=== PATIENT | female | born 1930 ===

== ENCOUNTER 2018-01-22 11:17 | Inpatient (IN) | payer MEDICARE, BC ==
[2018-01-22] MEDS ORDERED: cefTRIAXone 2 GM in Sodium Chloride 0.9% 100 ML IV ONE (11:28)
[2018-01-22] MEDS: Sodium Chloride 0.9% 10 ML Syringe FLUSH PRN ×2 (11:31→12:17)
[2018-01-22] MEDS ORDERED: Albuterol/Ipratropium 3.0-0.5 MG/3 ML Neb Soln NEB ONE (11:37)
--- NOTE | 2018-01-22 11:47 | EDM.PDOC ---
ED HPI GENERAL MEDICAL PROBLEM - General Chief Complaint: Respiratory Problem Stated Complaint: [facility] Time Seen by Provider: 01/22/18 11:24 Source of Information: Reports: Patient History Limitations: Reports: No Limitations - History of Present Illness INITIAL COMMENTS - FREE TEXT/NARRATIVE: 87-year-old female arrives via [facility] for evaluation and treatment of pneumonia and hypoxia. Patient was at the [facility] where she had a chest x-ray done, diagnosed with pneumonia there. Due to her hypoxia was sent via ambulance. Patient reports she's been experiencing symptoms for the last 2 weeks, steadily worsening. She is reporting headache, sinus congestion, productive cough and shortness of breath. Does not normally use oxygen. She denies any earaches, sore throat, chest pain, abdominal pain, nausea, vomiting, lightheadedness or dizziness. patient is on Coumadin for atrial fibrillation. 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, Oxygen - Related Data Allergies Allergy/AdvReac Type Severity Reaction Status Date / Time No Known Allergies Allergy Verified 01/22/18 11:25 Home Meds: Home Meds Albuterol [Proair HFA] 2 puff INH ASDIRECTED 10/23/13 [History] Diltiazem HCl [Diltiazem 24Hr ER] 240 mg PO DAILY 10/23/13 [History] Furosemide [Lasix] 40 mg PO DAILY 10/23/13 [History] Latanoprost [Xalatan 0.005% Ophth Soln] 1 drop EYEBOTH BEDTIME 10/23/13 [History ] Lisinopril [Prinivil] 5 mg PO DAILY 10/23/13 [History] Potassium Chloride 20 meq PO DAILY 10/23/13 [History] Probiotic Otc 1 tab PO BID 10/23/13 [History] guaiFENesin [Mucinex] 600 mg PO Q12H 10/23/13 [History] Doxycycline [Doxycycline Hyclate] 100 mg PO BID 01/22/18 [History] Ferrous Fumarate/Vitamin C [Vitron-C] 1 tab PO DAILY 01/22/18 [History] Metoprolol Succinate 25 mg PO DAILY 01/22/18 [History] Warfarin [Coumadin] 2 mg PO ASDIRECTED 01/22/18 [History] Past Medical History - Past Health History Medical/Surgical History: Denies Medical/Surgical History Social & Family History - Tobacco Use Smoking Status *Q: Former Smoker Used Tobacco, but Quit: Yes Month/Year Tobacco Last Used: 1979 - Caffeine Use Caffeine Use: Reports: Coffee - Recreational Drug Use Recreational Drug Use: No ED ROS GENERAL - Review of Systems Review Of Systems: See Below HEENT: Reports: Sinus Problem. Denies: Ear Pain, Throat Pain Respiratory: Reports: Shortness of Breath, Cough, Sputum Cardiovascular: Denies: Chest Pain GI/Abdominal: Denies: Abdominal Pain, Nausea, Vomiting Neurological: Reports: Headache ED EXAM, GENERAL - Physical Exam Exam: See Below Exam Limited By: No Limitations General Appearance: Alert, WD/WN, No Apparent Distress Eye Exam: Bilateral Eye: Normal Inspection Ears: Normal External Exam, Normal Canal, Hearing Grossly Normal, Normal TMs Nose: Normal Inspection Throat/Mouth: Normal Inspection, Normal Lips, Normal Voice, No Airway Compromise Neck: Normal Inspection Respiratory/Chest: Rhonchi (diffuse bilaral), Wheezing (diffuse bilteral), Other (tachypnea) Cardiovascular: No Murmur, Irregularly Irregular GI/Abdominal: Soft, Non-Tender Extremities: Normal Inspection, Other (trace nonpitting edema) Neurological: Alert, Oriented, Normal Cognition Psychiatric: Normal Affect, Normal Mood EKG INTERPRETATION EKG Date: 01/22/18 Time: 12:00 Rhythm: A-Fib Rate (Beats/Min): 86 [place]: Normal P-Wave: Absent QRS: Normal ST-T: Normal QT: Normal EKG Interpretation Comments: a.fib with a rate of 74 to 103. No acute ischemic changes. Reviewed by myself and Dr. Angelo. Course - Vital Signs Last Recorded V/S: Last Vital Signs Temp 97.9 F 01/22/18 15:27 Pulse 79 01/22/18 15:27 Resp 26 H 01/22/18 12:27 BP 134/86 01/22/18 15:27 Pulse Ox 90 L 01/22/18 15:27 - Orders/Labs/Meds Orders: Active Orders 24 hr Category Date Time Status Cardiac Monitoring [RC] . DIRECTED Care 01/22/18 11:25 Active EKG 12 Lead [EKG Documentation Completion] [RC] STAT Care 01/22/18 11:51 Active Oxygen Therapy [RC] ASDIRECTED Care 01/22/18 11:25 Active Peripheral IV Care [RC] . DIRECTED Care 01/22/18 11:25 Active RT Aerosol Therapy [RC] ASDIRECTED Care 01/22/18 11:37 Active RT Aerosol Therapy [RC] ASDIRECTED Care 01/22/18 13:12 Active CULTURE BLOOD [BC] Stat Lab 01/22/18 11:45 Received CULTURE BLOOD [BC] Stat Lab 01/22/18 11:50 Received CULTURE SPUTUM + SMEAR [RM] Stat Lab 01/22/18 14:20 Ordered UA W/MICROSCOPIC [URIN] Stat Lab 01/22/18 14:20 Ordered Sodium Chloride 0.9% [Saline Flush] Med 01/22/18 11:25 Active 10 ml FLUSH ASDIRECTED PRN Blood Culture x2 Reflex Set [OM.PC] Stat Oth 01/22/18 11:25 Ordered Peripheral IV Insertion Adult [OM.PC] Routine Oth 01/22/18 11:25 Ordered Medication Orders Sodium Chloride (Saline Flush) 10 ml FLUSH ASDIRECTED PRN PRN Reason: Keep Vein Open Last Admin: 01/22/18 12:17 Dose: 10 ml Admin: 01/22/18 11:31 Dose: 10 ml Labs: Laboratory Tests 01/22/18 01/22/18 01/22/18 Range/Units 11:15 11:45 11:45 WBC 8.37 (3.98-10.04) K/mm3 RBC 4.57 (3.98-5.22) M/mm3 Hgb 13.8 (11.2-15.7) gm/L Hct 41.6 (34.1-44.9) % MCV 91.0 (79.4-94.8) fl MCH 30.2 (25.6-32.2) pg MCHC 33.2 (32.2-35.5) g/dl RDW Std Deviation 51.7 H (36.4-46.3) fL Plt Count 224 (182-369) K/mm3 MPV 10.9 (9.4-12.3) fl Neutrophils % (Manual) 68 H (40-60) % Band Neutrophils % 0 (0-10) % Lymphocytes % (Manual) 21 (20-40) % Atypical Lymphs % 0 % Monocytes % (Manual) 10 (2-10) % Eosinophils % (Manual) 1 (0.7-5.8) % Basophils % (Manual) 0 L (0.1-1.2) Platelet Estimate Adequate RBC Morph Comment Normal PT 26.5 H (9.5-12.1) SECONDS INR 2.47 Sodium 134 L (136-145) mEq/L Potassium 4.4 (3.5-5.1) mEq/L Chloride 97 L (98-107) mEq/L Carbon Dioxide 30 (21-32) mEq/L Anion Gap 11.4 (5-15) BUN 41 H (7-18) mg/dL Creatinine 1.5 H (0.55-1.02) mg/dL Est Cr Clr Drug Dosing 23.80 mL/min Estimated GFR (MDRD) 33 (>60) mL/min BUN/Creatinine Ratio 27.3 H (14-18) Glucose 92 (83-115) mg/dL Lactic Acid (0.4-2.0) mmol/L Calcium 9.4 (8.5-10.1) mg/dL Magnesium (1.8-2.4) mg/dl Total Bilirubin 0.5 (0.2-1.0) mg/dL AST 35 (15-37) U/L ALT 34 (14-59) U/L Alkaline Phosphatase 129 H (46-116) U/L Troponin I (0.00-0.056) ng/mL C-Reactive Protein 4.5 H* (<1.0) mg/dL NT-Pro-B Natriuret Pep (0-450) pg/mL Total Protein 8.1 (6.4-8.2) g/dl Albumin 3.4 (3.4-5.0) g/dl Globulin 4.7 gm/dL Albumin/Globulin Ratio 0.7 L (1-2) Mycoplasma pneumon IgM Negative (NEGATIVE) 01/22/18 01/22/18 01/22/18 Range/Units 11:45 11:45 12:20 WBC (3.98-10.04) K/mm3 RBC (3.98-5.22) M/mm3 Hgb (11.2-15.7) gm/L Hct (34.1-44.9) % MCV (79.4-94.8) fl MCH (25.6-32.2) pg MCHC (32.2-35.5) g/dl RDW Std Deviation (36.4-46.3) fL Plt Count (182-369) K/mm3 MPV (9.4-12.3) fl Neutrophils % (Manual) (40-60) % Band Neutrophils % (0-10) % Lymphocytes % (Manual) (20-40) % Atypical Lymphs % % Monocytes % (Manual) (2-10) % Eosinophils % (Manual) (0.7-5.8) % Basophils % (Manual) (0.1-1.2) Platelet Estimate RBC Morph Comment PT (9.5-12.1) SECONDS INR Sodium (136-145) mEq/L Potassium (3.5-5.1) mEq/L Chloride (98-107) mEq/L Carbon Dioxide (21-32) mEq/L Anion Gap (5-15) BUN (7-18) mg/dL Creatinine (0.55-1.02) mg/dL Est Cr Clr Drug Dosing mL/min Estimated GFR (MDRD) (>60) mL/min BUN/Creatinine Ratio (14-18) Glucose (83-115) mg/dL Lactic Acid 0.8 (0.4-2.0) mmol/L Calcium (8.5-10.1) mg/dL Magnesium 1.9 (1.8-2.4) mg/dl Total Bilirubin (0.2-1.0) mg/dL AST (15-37) U/L ALT (14-59) U/L Alkaline Phosphatase (46-116) U/L Troponin I < 0.017 (0.00-0.056) ng/mL C-Reactive Protein (<1.0) mg/dL NT-Pro-B Natriuret Pep 4181 H (0-450) pg/mL Total Protein (6.4-8.2) g/dl Albumin (3.4-5.0) g/dl Globulin gm/dL Albumin/Globulin Ratio (1-2) Mycoplasma pneumon IgM (NEGATIVE) Meds: Medications Generic Name Dose Route Start Last Admin Trade Name Freq PRN Reason Stop Dose Admin Sodium Chloride 10 ml 01/22/18 11:25 01/22/18 12:17 Saline Flush FLUSH 10 ml ASDIRECTED PRN Administration Keep Vein Open Discontinued Medications Generic Name Dose Route Start Last Admin Trade Name Freq PRN Reason Stop Dose Admin Albuterol 2.5 mg 01/22/18 13:12 01/22/18 13:30 Proventil Neb Soln NEB 01/22/18 13:13 2.5 mg ONETIME ONE Administration Albuterol/Ipratropium 3 ml 01/22/18 11:37 01/22/18 11:48 Duoneb 3.0-0.5 Mg/3 Ml NEB 01/22/18 11:38 3 ml ONETIME ONE Administration Furosemide 40 mg 01/22/18 12:58 01/22/18 13:17 Lasix IVPUSH 01/22/18 12:59 40 mg NOW ONE Administration Ceftriaxone Sodium 2 gm/ 100 mls @ 100 mls/hr 01/22/18 11:28 01/22/18 12:17 Sodium Chloride IV 01/22/18 12:27 100 mls/hr ONETIME ONE Administration Methylprednisolone Sodium Succinate 40 mg 01/22/18 13:17 01/22/18 13:41 Solu-Medrol IVPUSH 01/22/18 13:18 40 mg ONETIME ONE Administration - Radiology Interpretation Free Text/Narrative:: Two-view chest x-ray (taken at [facility]) impression per vrad: COPD. - Re-Assessments/Exams Free Text/Narrative Re-Assessment/Exam: 01/22/18 13:47 Reviewed the labs, EKG and imaging with the patient. She is still hypoxic. Her oxygen sats drop into the upper 70s with exertion. I Feel she likely has a combination of COPD and heart failure causing her hypoxia today. I'm recommending admission. She is agreeable to this. 01/22/18 13:[address] Sanchez, hospitalist application engineer. He agrees to the admission. She will be admitted med/surg. Departure - Departure Time of Disposition: 14:10 Disposition: Admitted As Inpatient 64 Condition: Fair Clinical Impression: COLD, Chronic obstructive lung disease, Hypoxemia, Heart failure - Discharge Information *PRESCRIPTION DRUG MONITORING PROGRAM REVIEWED*: No *COPY OF PRESCRIPTION DRUG MONITORING REPORT IN PATIENT WHIT: No - My Orders Last 24 Hours: My Active Orders 01/22/18 11:25 Cardiac Monitoring [RC] . DIRECTED Oxygen Therapy [RC] ASDIRECTED Peripheral IV Care [RC] . DIRECTED Sodium Chloride 0.9% [Saline Flush] 10 ml FLUSH ASDIRECTED PRN Blood Culture x2 Reflex Set [OM.PC] Stat Peripheral IV Insertion Adult [OM.PC] Routine 01/22/18 11:37 RT Aerosol Therapy [RC] ASDIRECTED 01/22/18 11:45 CULTURE BLOOD [BC] Stat 01/22/18 11:50 CULTURE BLOOD [BC] Stat 01/22/18 11:51 EKG 12 Lead [EKG Documentation Completion] [RC] STAT 01/22/18 13:12 RT Aerosol Therapy [RC] ASDIRECTED 01/22/18 14:20 CULTURE SPUTUM + SMEAR [RM] Stat UA W/MICROSCOPIC [URIN] Stat - Assessment/Plan Last 24 Hours: My Active Orders 01/22/18 11:25 Cardiac Monitoring [RC] . DIRECTED Oxygen Therapy [RC] ASDIRECTED Peripheral IV Care [RC] . DIRECTED Sodium Chloride 0.9% [Saline Flush] 10 ml FLUSH ASDIRECTED PRN Blood Culture x2 Reflex Set [OM.PC] Stat Peripheral IV Insertion Adult [OM.PC] Routine 01/22/18 11:37 RT Aerosol Therapy [RC] ASDIRECTED 01/22/18 11:45 CULTURE BLOOD [BC] Stat 01/22/18 11:50 CULTURE BLOOD [BC] Stat 01/22/18 11:51 EKG 12 Lead [EKG Documentation Completion] [RC] STAT 01/22/18 13:12 RT Aerosol Therapy [RC] ASDIRECTED 01/22/18 14:20 CULTURE SPUTUM + SMEAR [RM] Stat UA W/MICROSCOPIC [URIN] Stat
[2018-01-22] MEDS ORDERED: Furosemide 40 MG/4 ML VIAL IVPUSH ONE (12:58)
[2018-01-22] MEDS ORDERED: Albuterol 0.083% 2.5 MG/3 ML Neb Soln NEB ONE (13:12)
[2018-01-22] MEDS ORDERED: methylPREDNISolone Sodium Succinate 40 MG/1 ML SDV IVPUSH ONE (13:17)
[2018-01-22] MEDS ORDERED: Acetaminophen/oxyCODONE 325-5 MG Tab PO PRN (18:36)
[2018-01-22] MEDS ORDERED: Acetaminophen 325 MG Tab PO PRN (18:36)
[2018-01-22] MEDS ORDERED: Ondansetron 4 MG/2 ML SDV IV PRN (18:36)
[2018-01-22] MEDS ORDERED: Ondansetron 4 MG Tab.DIS PO PRN (18:36)
[2018-01-22] MEDS ORDERED: Docusate Sodium 100 MG Cap PO PRN (18:36)
[2018-01-22] MEDS ORDERED: Bisacodyl 5 MG Tab PO PRN (18:36)
[2018-01-22] MEDS ORDERED: Temazepam 7.5 MG Cap PO PRN (18:36)
[2018-01-22] MEDS ORDERED: Magnesium Hydroxide 400 MG/5 ML Susp 30 ML Cup PO PRN (18:36)
[2018-01-22] MEDS ORDERED: Albuterol 0.083% 2.5 MG/3 ML Neb Soln NEB PRN (18:36)
[2018-01-22] MEDS ORDERED: HYDROmorphone 0.5 MG/0.5 ML Syringe IVPUSH PRN (18:36)
[2018-01-22] MEDS ORDERED: Polyethylene Glycol 3350 Powder 17 GM Packet PO PRN (18:36)
[2018-01-22] MEDS ORDERED: Warfarin 2 MG Tab PO SCH (19:00)
[2018-01-22] MEDS ORDERED: Warfarin 2 MG Tab PO ONE (19:45)
[2018-01-22] MEDS: guaiFENesin 600 MG Tab.ER PO SCH (20:02)
[2018-01-22] MEDS: Latanoprost 0.005% Ophth Soln 2.5 ML Bottle EYEBOTH SCH (20:04)
[2018-01-22] MEDS: methylPREDNISolone Sodium Succinate 40 MG/1 ML SDV IVPUSH SCH (20:07)
--- NOTE | 2018-01-22 22:25 | PCM.HP ---
H&P History of Present Illness - General Date of Service: 01/22/18 Admit Problem/Dx: Admission Diagnosis/Problem Admission Diagnosis/Problem COPD, Moderate chronic obstructive pulmonary disease Source of Information: Patient, Family History Limitations: Reports: No Limitations - History of Present Illness Initial Comments - Free Text/Narative: This is an 87 yo female with past medical h/o Afib on coumadin, CHF, HTN, Glaucoma who comes in for CHF and COPD exacerbation with hypoxia. No current pain. She complains of wheezing, SOB on exertion, productive cough, sinus congestion, headache. She denies any F/C, decreased appetite, nausea, vomiting, diarrhea, chest pain, or GI/ complaints. Her symptoms improved after receiving O2, Duonebs, Albuterol, Lasix, Rocephin and Solu-medrol in the ED. Her initial workup in the ED showed a CBC remarkable for RDW 51.7, Neut 68%. Her coagulation study shows PT 26.5, INR 2.47. Her chemistry is remarkable for Na 134, Cl 97, BUN 41, Cr 1.5, eGFR 33, Alk Phos 129 , CRP 4.5, BNP 4181. EKG shows Afib. Chest X-ray from [facility] shows COPD per [facility]. U/A unimpressive for UTI. Mycoplasma negative. Lactic acid normal at 0.8. Sputum culture shows moderate WBC and Gram + cocci. Blood cultures pending. She is subsequently admitted to the medical floor. She is DNR/DNI. Her PCP is Dr. Boudreaux. - Related Data Allergies/Adverse Reactions: Allergies Allergy/AdvReac Type Severity Reaction Status Date / Time No Known Allergies Allergy Verified 01/22/18 11:25 Home Medications: Home Meds Albuterol [Proair HFA] 2 puff INH ASDIRECTED 10/23/13 [History] Diltiazem HCl [Diltiazem 24Hr ER] 240 mg PO DAILY 10/23/13 [History] Furosemide [Lasix] 40 mg PO DAILY 10/23/13 [History] Latanoprost [Xalatan 0.005% Ophth Soln] 1 drop EYEBOTH BEDTIME 10/23/13 [History ] Lisinopril [Prinivil] 5 mg PO DAILY 10/23/13 [History] Potassium Chloride 20 meq PO DAILY 10/23/13 [History] Probiotic Otc 1 tab PO BID 10/23/13 [History] guaiFENesin [Mucinex] 600 mg PO Q12H 10/23/13 [History] Doxycycline [Doxycycline Hyclate] 100 mg PO BID 01/22/18 [History] Ferrous Fumarate/Vitamin C [Vitron-C] 1 tab PO DAILY 01/22/18 [History] Metoprolol Succinate 25 mg PO DAILY 01/22/18 [History] Warfarin [Coumadin] 2 mg PO ASDIRECTED 01/22/18 [History] Past Medical History - Past Health History Medical/Surgical History: Denies Medical/Surgical History HEENT History: Reports: Glaucoma, Macular Degeneration Cardiovascular History: Reports: Heart Failure, Hypertension Respiratory History: Reports: COPD Social & Family History - Family History Family Medical History: Noncontributory - Tobacco Use Smoking Status *Q: Former Smoker Years of Tobacco use: 40 Used Tobacco, but Quit: Yes Month/Year Tobacco Last Used: 1979 - Caffeine Use Caffeine Use: Reports: Coffee - Recreational Drug Use Recreational Drug Use: No H&P Review of Systems - Review of Systems: Review Of Systems: See Below General: Reports: No Symptoms. Denies: Fever, Chills, Weakness HEENT: Reports: Glasses Pulmonary: Reports: Shortness of Breath (with exertion), Wheezing, Cough, Sputum. Denies: Pleuritic Chest Pain Cardiovascular: Reports: Dyspnea on Exertion, Blood Pressure Problem. Denies: Chest Pain, Orthopnea, Edema Gastrointestinal: Reports: No Symptoms. Denies: Abdominal Pain, Diarrhea, Nausea, Vomiting Genitourinary: Reports: No Symptoms. Denies: Dysuria, Frequency, Burning, Pain , Urgency, Incontinence Musculoskeletal: Reports: No Symptoms Skin: Reports: No Symptoms Psychiatric: Reports: No Symptoms Neurological: Reports: No Symptoms Hematologic/Lymphatic: Reports: No Symptoms Immunologic: Reports: No Symptoms Exam - Exam Exam: See Below - Vital Signs Vital Signs: Last Vital Signs Temp 98.2 F 01/22/18 19:57 Pulse 101 H 01/22/18 19:57 Resp 18 01/22/18 19:57 BP 108/65 01/22/18 19:57 Pulse Ox 91 L 01/22/18 19:57 Weight: 148 lb 12.8 oz - Exam Quality Assessment: Supplemental Oxygen (2L NC), DVT Prophylaxis General: Alert, Oriented, Cooperative, Mild Distress HEENT: PERRLA, Hearing Intact, Mucosa Moist & [place], Nares Patent, Normal Nasal Septum, Posterior Pharynx Clear, Conjunctiva Clear, EOMI, EACs Clear, TMs Clear Neck: Supple, Trachea Midline, 2 Lungs: Normal Respiratory Effort, Rhonchi, Wheezing Cardiovascular: Irregular Rhythm. No: Regular Rate (irregular) GI/Abdominal Exam: Normal Bowel Sounds, Soft, Non-Tender, No Organomegaly, No Distention, No Abnormal Bruit, No Mass, Pelvis Stable (Female) Exam: Deferred Rectal (Female) Exam: Deferred Back Exam: Normal Inspection, Full Range of Motion, Other (no sacral edema) Extremities: Normal Inspection, Normal Range of Motion, Non-Tender, No Pedal Edema, Normal Capillary Refill Peripheral Pulses: 2+: Posterior Tibial (L), Posterior Tibial (R), Dorsalis Pedis (L), Dorsalis Pedis (R) Skin: Warm, Dry, Intact Neurological: Cranial Nerves Intact (grossly) Neuro Extensive - Mental Status: Alert, Oriented x3, Normal Mood/Affect, Normal Cognition Psychiatric: Alert, Normal Affect, Normal Mood - Patient Data Lab Results Last 24 hrs: Laboratory Results - last 24 hr 01/22/18 01/22/18 01/22/18 Range/Units 11:15 11:45 11:45 WBC 8.37 (3.98-10.04) K/mm3 RBC 4.57 (3.98-5.22) M/mm3 Hgb 13.8 (11.2-15.7) gm/L Hct 41.6 (34.1-44.9) % MCV 91.0 (79.4-94.8) fl MCH 30.2 (25.6-32.2) pg MCHC 33.2 (32.2-35.5) g/dl RDW Std Deviation 51.7 H (36.4-46.3) fL Plt Count 224 (182-369) K/mm3 MPV 10.9 (9.4-12.3) fl Neutrophils % (Manual) 68 H (40-60) % Band Neutrophils % 0 (0-10) % Lymphocytes % (Manual) 21 (20-40) % Atypical Lymphs % 0 % Monocytes % (Manual) 10 (2-10) % Eosinophils % (Manual) 1 (0.7-5.8) % Basophils % (Manual) 0 L (0.1-1.2) Platelet Estimate Adequate RBC Morph Comment Normal PT 26.5 H (9.5-12.1) SECONDS INR 2.47 Sodium 134 L (136-145) mEq/L Potassium 4.4 (3.5-5.1) mEq/L Chloride 97 L (98-107) mEq/L Carbon Dioxide 30 (21-32) mEq/L Anion Gap 11.4 (5-15) BUN 41 H (7-18) mg/dL Creatinine 1.5 H (0.55-1.02) mg/dL Est Cr Clr Drug Dosing 23.80 mL/min Estimated GFR (MDRD) 33 (>60) mL/min BUN/Creatinine Ratio 27.3 H (14-18) Glucose 92 (83-115) mg/dL Lactic Acid (0.4-2.0) mmol/L Calcium 9.4 (8.5-10.1) mg/dL Magnesium (1.8-2.4) mg/dl Total Bilirubin 0.5 (0.2-1.0) mg/dL AST 35 (15-37) U/L ALT 34 (14-59) U/L Alkaline Phosphatase 129 H (46-116) U/L Troponin I (0.00-0.056) ng/mL C-Reactive Protein 4.5 H* (<1.0) mg/dL NT-Pro-B Natriuret Pep (0-450) pg/mL Total Protein 8.1 (6.4-8.2) g/dl Albumin 3.4 (3.4-5.0) g/dl Globulin 4.7 gm/dL Albumin/Globulin Ratio 0.7 L (1-2) Urine Color (Yellow) Urine Appearance (Clear) Urine pH (5.0-8.0) Ur Specific S[place] (1.005-1.030) Urine Protein (Negative) Urine Glucose (UA) (Negative) Urine Ketones (Negative) Urine Occult Blood (Negative) Urine Nitrite (Negative) Urine Bilirubin (Negative) Urine Urobilinogen (0.2-1.0) Ur Leukocyte Esterase (Negative) Urine RBC (0-5) /hpf Urine WBC (0-5) /hpf Ur Epithelial Cells (0-5) /hpf Urine Bacteria (FEW) /hpf Urine Mucus (FEW) /hpf Mycoplasma pneumon IgM Negative (NEGATIVE) 01/22/18 01/22/18 01/22/18 Range/Units 11:45 11:45 12:20 WBC (3.98-10.04) K/mm3 RBC (3.98-5.22) M/mm3 Hgb (11.2-15.7) gm/L Hct (34.1-44.9) % MCV (79.4-94.8) fl MCH (25.6-32.2) pg MCHC (32.2-35.5) g/dl RDW Std Deviation (36.4-46.3) fL Plt Count (182-369) K/mm3 MPV (9.4-12.3) fl Neutrophils % (Manual) (40-60) % Band Neutrophils % (0-10) % Lymphocytes % (Manual) (20-40) % Atypical Lymphs % % Monocytes % (Manual) (2-10) % Eosinophils % (Manual) (0.7-5.8) % Basophils % (Manual) (0.1-1.2) Platelet Estimate RBC Morph Comment PT (9.5-12.1) SECONDS INR Sodium (136-145) mEq/L Potassium (3.5-5.1) mEq/L Chloride (98-107) mEq/L Carbon Dioxide (21-32) mEq/L Anion Gap (5-15) BUN (7-18) mg/dL Creatinine (0.55-1.02) mg/dL Est Cr Clr Drug Dosing mL/min Estimated GFR (MDRD) (>60) mL/min BUN/Creatinine Ratio (14-18) Glucose (83-115) mg/dL Lactic Acid 0.8 (0.4-2.0) mmol/L Calcium (8.5-10.1) mg/dL Magnesium 1.9 (1.8-2.4) mg/dl Total Bilirubin (0.2-1.0) mg/dL AST (15-37) U/L ALT (14-59) U/L Alkaline Phosphatase (46-116) U/L Troponin I < 0.017 (0.00-0.056) ng/mL C-Reactive Protein (<1.0) mg/dL NT-Pro-B Natriuret Pep 4181 H (0-450) pg/mL Total Protein (6.4-8.2) g/dl Albumin (3.4-5.0) g/dl Globulin gm/dL Albumin/Globulin Ratio (1-2) Urine Color (Yellow) Urine Appearance (Clear) Urine pH (5.0-8.0) Ur Specific [place] (1.005-1.030) Urine Protein (Negative) Urine Glucose (UA) (Negative) Urine Ketones (Negative) Urine Occult Blood (Negative) Urine Nitrite (Negative) Urine Bilirubin (Negative) Urine Urobilinogen (0.2-1.0) Ur Leukocyte Esterase (Negative) Urine RBC (0-5) /hpf Urine WBC (0-5) /hpf Ur Epithelial Cells (0-5) /hpf Urine Bacteria (FEW) /hpf Urine Mucus (FEW) /hpf Mycoplasma pneumon IgM (NEGATIVE) 01/22/18 Range/Units 14:20 WBC (3.98-10.04) K/mm3 RBC (3.98-5.22) M/mm3 Hgb (11.2-15.7) gm/L Hct (34.1-44.9) % MCV (79.4-94.8) fl MCH (25.6-32.2) pg MCHC (32.2-35.5) g/dl RDW Std Deviation (36.4-46.3) fL Plt Count (182-369) K/mm3 MPV (9.4-12.3) fl Neutrophils % (Manual) (40-60) % Band Neutrophils % (0-10) % Lymphocytes % (Manual) (20-40) % Atypical Lymphs % % Monocytes % (Manual) (2-10) % Eosinophils % (Manual) (0.7-5.8) % Basophils % (Manual) (0.1-1.2) Platelet Estimate RBC Morph Comment PT (9.5-12.1) SECONDS INR Sodium (136-145) mEq/L Potassium (3.5-5.1) mEq/L Chloride (98-107) mEq/L Carbon Dioxide (21-32) mEq/L Anion Gap (5-15) BUN (7-18) mg/dL Creatinine (0.55-1.02) mg/dL Est Cr Clr Drug Dosing mL/min Estimated GFR (MDRD) (>60) mL/min BUN/Creatinine Ratio (14-18) Glucose (83-115) mg/dL Lactic Acid (0.4-2.0) mmol/L Calcium (8.5-10.1) mg/dL Magnesium (1.8-2.4) mg/dl Total Bilirubin (0.2-1.0) mg/dL AST (15-37) U/L ALT (14-59) U/L Alkaline Phosphatase (46-116) U/L Troponin I (0.00-0.056) ng/mL C-Reactive Protein (<1.0) mg/dL NT-Pro-B Natriuret Pep (0-450) pg/mL Total Protein (6.4-8.2) g/dl Albumin (3.4-5.0) g/dl Globulin gm/dL Albumin/Globulin Ratio (1-2) Urine Color Yellow (Yellow) Urine Appearance Clear (Clear) Urine pH 6.0 (5.0-8.0) Ur Specific [place] 1.015 (1.005-1.030) Urine Protein Negative (Negative) Urine Glucose (UA) Negative (Negative) Urine Ketones Negative (Negative) Urine Occult Blood Negative (Negative) Urine Nitrite Negative (Negative) Urine Bilirubin Negative (Negative) Urine Urobilinogen 0.2 (0.2-1.0) Ur Leukocyte Esterase Trace H (Negative) Urine RBC 5-10 H (0-5) /hpf Urine WBC 5-10 H (0-5) /hpf Ur Epithelial Cells 0-5 (0-5) /hpf Urine Bacteria Few (FEW) /hpf Urine Mucus Not seen (FEW) /hpf Mycoplasma pneumon IgM (NEGATIVE) Result Diagrams: 01/22/18 11:45 01/22/18 11:45 Idris Results Last 24 hrs: Microbiology 01/22/18 14:20 Gram Stain - Final Sputum - Expectorated - Problem List (1) COLD, Chronic obstructive lung disease SNOMED Code(s): 64308841 ICD Code: J44.9 - CHRONIC OBSTRUCTIVE PULMONARY DISEASE, UNSPECIFIED Status : Chronic Priority: High Current Visit: Yes (2) Heart failure SNOMED Code(s): 61455696 ICD Code: I50.9 - HEART FAILURE, UNSPECIFIED Status: Chronic Priority: High Current Visit: Yes Qualifiers: Heart failure type: unspecified Heart failure chronicity: unspecified Qualified Code(s): I50.9 - Heart failure, unspecified (3) Hypoxemia SNOMED Code(s): 117540139 ICD Code: R09.02 - HYPOXEMIA Status: Acute Priority: High Current Visit : Yes Problem List Initiated/Reviewed/Updated: Yes Orders Last 24hrs: Active Orders 24 hr Category Date Time Status Patient Status [ADT] Routine ADT 01/22/18 14:14 Active Cardiac Monitoring [RC] . DIRECTED Care 01/22/18 11:25 Active Height and Weight [RC] 04 Care 01/22/18 18:25 Active Intake and Output [RC] 04,16 Care 01/22/18 18:29 Active May Shower [RC] ASDIRECTED Care 01/22/18 17:40 Active Oxygen Therapy [RC] PRN Care 01/22/18 18:57 Active Peripheral IV Care [RC] . DIRECTED Care 01/22/18 11:25 Active Pulse Oximetry [RC] PRN Care 01/22/18 18:29 Active RT Aerosol Therapy [RC] ASDIRECTED Care 01/22/18 18:42 Active Up With Assistance [RC] ASDIRECTED Care 01/22/18 17:40 Active Up to Chair [RC] BID Care 01/22/18 17:40 Active VTE/DVT Education [RC] DAILY Care 01/22/18 17:40 Active Vital Signs [RC] Q4H Care 01/22/18 17:40 Active Consult to Case Management [CONS] Routine Cons 01/22/18 18:36 Active Consult to Drill Press Operator For Metal [CONS] Routine Cons 01/22/18 18:36 Active Respiratory Care Assess and Treatment [CONS] Routine Cons 01/22/18 18:36 Active 2 Gram Sodium Diet [DIET] Diet 01/22/18 Dinner Active Fluid Restriction [DIET] Diet 01/22/18 Dinner Active Heart Healthy Diet [DIET] Diet 01/22/18 Dinner Active Chest 1V Frontal [CR] AM Exams 01/24/18 05:11 Ordered Echo Comp wo Cont [US] Routine Exams 01/23/18 18:44 Ordered BASIC METABOLIC PANEL,BMP [CHEM] AM Lab 01/23/18 05:11 Ordered BASIC METABOLIC PANEL,BMP [CHEM] AM Lab 01/24/18 05:11 Ordered BASIC METABOLIC PANEL,BMP [CHEM] AM Lab 01/25/18 05:11 Ordered BASIC METABOLIC PANEL,BMP [CHEM] AM Lab 01/26/18 05:11 Ordered BASIC METABOLIC PANEL,BMP [CHEM] AM Lab 01/27/18 05:11 Ordered C-REACTIVE PROTEIN [CHEM] AM Lab 01/23/18 05:11 Ordered C-REACTIVE PROTEIN [CHEM] AM Lab 01/24/18 05:11 Ordered C-REACTIVE PROTEIN [CHEM] AM Lab 01/25/18 05:11 Ordered C-REACTIVE PROTEIN [CHEM] AM Lab 01/26/18 05:11 Ordered C-REACTIVE PROTEIN [CHEM] AM Lab 01/27/18 05:11 Ordered CBC WITH AUTO DIFF [HEME] AM Lab 01/23/18 05:11 Ordered CBC WITH AUTO DIFF [HEME] AM Lab 01/24/18 05:11 Ordered CBC WITH AUTO DIFF [HEME] AM Lab 01/25/18 05:11 Ordered CBC WITH AUTO DIFF [HEME] AM Lab 01/26/18 05:11 Ordered CBC WITH AUTO DIFF [HEME] AM Lab 01/27/18 05:11 Ordered CULTURE BLOOD [BC] Stat Lab 01/22/18 11:45 Received CULTURE BLOOD [BC] Stat Lab 01/22/18 11:50 Received CULTURE SPUTUM + SMEAR [RM] Stat Lab 01/22/18 14:20 Ordered INR,PT,PROTHROMBIN TIME [COAG] AM Lab 01/23/18 05:11 Ordered INR,PT,PROTHROMBIN TIME [COAG] AM Lab 01/24/18 05:11 Ordered INR,PT,PROTHROMBIN TIME [COAG] AM Lab 01/25/18 05:11 Ordered INR,PT,PROTHROMBIN TIME [COAG] AM Lab 01/26/18 05:11 Ordered INR,PT,PROTHROMBIN TIME [COAG] AM Lab 01/27/18 05:11 Ordered MAGNESIUM [CHEM] AM Lab 01/23/18 05:11 Ordered MAGNESIUM [CHEM] AM Lab 01/24/18 05:11 Ordered MAGNESIUM [CHEM] AM Lab 01/25/18 05:11 Ordered MAGNESIUM [CHEM] AM Lab 01/26/18 05:11 Ordered MAGNESIUM [CHEM] AM Lab 01/27/18 05:11 Ordered PRO B-TYPE NATRIUR PEPT,BNPPRO [CHEM] DAILY Lab 01/23/18 05:11 Ordered PRO B-TYPE NATRIUR PEPT,BNPPRO [CHEM] DAILY Lab 01/24/18 05:11 Ordered PRO B-TYPE NATRIUR PEPT,BNPPRO [CHEM] DAILY Lab 01/25/18 05:11 Ordered PRO B-TYPE NATRIUR PEPT,BNPPRO [CHEM] DAILY Lab 01/26/18 05:11 Ordered PRO B-TYPE NATRIUR PEPT,BNPPRO [CHEM] DAILY Lab 01/27/18 05:11 Ordered UA W/MICROSCOPIC [URIN] Stat Lab 01/22/18 14:20 Ordered Acetaminophen [Tylenol] Med 01/22/18 18:36 Active 650 mg PO Q4H PRN Acetaminophen/oxyCODONE [Percocet 325-5 MG] Med 01/22/18 18:36 Active 1 tab PO Q4H PRN Albuterol [Proventil Neb Soln] Med 01/22/18 18:36 Active 2.5 mg NEB Q2H PRN Albuterol/Ipratropium [DuoNeb 3.0-0.5 MG/3 ML] Med 01/22/18 18:36 Active 3 ml NEB Q4H PRN Azithromycin [Zithromax] Med 01/23/18 09:00 Active 250 mg PO DAILY Bisacodyl [Dulcolax] Med 01/22/18 18:36 Active 5 mg PO DAILY PRN Diltiazem [Dilacor XR] Med 01/23/18 09:00 Active 240 mg PO DAILY Docusate Sodium [Colace] Med 01/22/18 18:36 Active 100 mg PO BID PRN Docusate Sodium/Sennosides [Senna Plus] Med 01/22/18 18:36 Active 1 tab PO BID PRN Furosemide [Lasix] Med 01/23/18 09:00 Active 40 mg IVPUSH DAILY HYDROmorphone [Dilaudid] Med 01/22/18 18:36 Active 0.25 mg IVPUSH Q2H PRN Latanoprost [Xalatan 0.005% Ophth Soln] Med 01/22/18 21:00 Active 0 ml EYEBOTH BEDTIME Lisinopril [Prinivil] Med 01/23/18 09:00 Active 5 mg PO DAILY Magnesium Hydroxide [Milk of Magnesia] Med 01/22/18 18:36 Active 30 ml PO Q12H PRN Metoprolol Succinate [Toprol XL] Med 01/23/18 09:00 Active 25 mg PO DAILY Ondansetron [Zofran ODT] Med 01/22/18 18:36 Active 4 mg PO Q4H PRN Ondansetron [Zofran] Med 01/22/18 18:36 Active 4 mg IV Q4H PRN Polyethylene Glycol 3350 [MiraLAX] Med 01/22/18 18:36 Active 17 gm PO DAILY PRN Potassium Chloride [Klor-Con M20] Med 01/23/18 09:00 Active 20 meq PO DAILY Sodium Chloride 0.9% [Saline Flush] Med 01/22/18 11:25 Active 10 ml FLUSH ASDIRECTED PRN Temazepam [Restoril] Med 01/22/18 18:36 Active 7.5 mg PO BEDTIME PRN Warfarin Pharmacy to Dose [Pharmacy to Dose - Warfarin] Med 01/22/18 19:30 Pending 1 dose .XX ASDIRECTED guaiFENesin [Mucinex] Med 01/22/18 20:00 Active 600 mg PO Q12H methylPREDNISolone Sod Succ [Solu-MEDROL] Med 01/22/18 21:00 Active 40 mg IVPUSH Q12H predniSONE Med 01/25/18 09:00 Active 20 mg PO DAILY Antiembolic Hose [OM.PC] Per Unit Routine Oth 01/22/18 18:31 Ordered Blood Culture x2 Reflex Set [OM.PC] Stat Oth 01/22/18 11:25 Ordered Peripheral IV Insertion Adult [OM.PC] Routine Oth 01/22/18 11:25 Ordered Code Status [Resuscitation Status] Routine Resus Stat 01/22/18 15:34 Ordered Medication Orders Acetaminophen (Tylenol) 650 mg PO Q4H PRN PRN Reason: Pain (Mild 1-3)/fever Albuterol (Proventil Neb Soln) 2.5 mg NEB Q2H PRN PRN Reason: Shortness Of Breath/wheezing Albuterol/Ipratropium (Duoneb 3.0-0.5 Mg/3 Ml) 3 ml NEB Q4H PRN PRN Reason: Shortness Of Breath/wheezing Azithromycin (Zithromax) 250 mg PO DAILY JUDI Bisacodyl (Dulcolax) 5 mg PO DAILY PRN PRN Reason: Constipation Diltiazem HCl (Dilacor Xr) 240 mg PO DAILY JUDI Docusate Sodium (Colace) 100 mg PO BID PRN PRN Reason: Constipation Furosemide (Lasix) 40 mg IVPUSH DAILY [facility] Guaifenesin (Mucinex) 600 mg PO Q12H [facility] Last Admin: 01/22/18 20:02 Dose: 600 mg Hydromorphone HCl (Dilaudid) 0.25 mg IVPUSH Q2H PRN PRN Reason: Pain (severe 7-10) Latanoprost (Xalatan 0.005% Ophth Soln) 0 ml EYEBOTH BEDTIME [facility] Last Admin: 01/22/18 20:04 Dose: 1 drop Lisinopril (Prinivil) 5 mg PO DAILY [facility] Magnesium Hydroxide (Milk Of Magnesia) 30 ml PO Q12H PRN PRN Reason: Constipation Methylprednisolone Sodium Succinate (Solu-Medrol) 40 mg IVPUSH Q12H [facility] Stop: 01/24/18 21:00 Last Admin: 01/22/18 20:07 Dose: 40 mg Metoprolol Succinate (Toprol Xl) 25 mg PO DAILY [facility] Ondansetron HCl (Zofran Odt) 4 mg PO Q4H PRN PRN Reason: nausea, able to take PO Ondansetron HCl (Zofran) 4 mg IV Q4H PRN PRN Reason: Nausea/Vomiting Oxycodone/Acetaminophen (Percocet 325-5 Mg) 1 tab PO Q4H PRN PRN Reason: Pain (moderate 4-6) Polyethylene Glycol (Miralax) 17 gm PO DAILY PRN PRN Reason: Constipation Potassium Chloride (Klor-Con M20) 20 meq PO DAILY [facility] Prednisone (Prednisone) 20 mg PO DAILY [facility] Senna/Docusate Sodium (Senna Plus) 1 tab PO BID PRN PRN Reason: Constipation Sodium Chloride (Saline Flush) 10 ml FLUSH ASDIRECTED PRN PRN Reason: Keep Vein Open Last Admin: 01/22/18 12:17 Dose: 10 ml Admin: 01/22/18 11:31 Dose: 10 ml Temazepam (Restoril) 7.5 mg PO BEDTIME PRN PRN Reason: Sleep Warfarin Sodium (Pharmacy To Dose - Warfarin) 1 dose .XX ASDIRECTED [facility] Assessment/Plan Comment:: I/P: Acute: CHF exacerbation; unknown EF * BNP elevated at 4181 * SOB, no pedal or sacral edema * ECHO ordered * Lasix 40mg IV Q daily * 2g Na restriction and 2L fluid restrict COPD exacerbation * CXR from [place] shows COPD per [facility] * CRP elevated 4.5 * Repeat CXR in 2 days * RT/Duonebs/Albuterol PRN * Solumedrol 40mg given in ED--> Continue daily x 2 days, then start Prednisone PO 20mg * Azithro 250 Q Daily as anti-inflammatory Hypoxia * 2/2 Above * 61% RA at home and "blue lips" per pt * 88% on 2L NC (upper 70's with exertion per ER report) * Continue O2 as needed Upper Respiratory Infection, improving * Per family, has had x 2 weeks and is getting better * Afebrile, No leukocytosis * C/O Sinus congestion, productive cough, headache * R/O PNA: * CXR shows no infiltrates * Mycoplasma negative * Sputum culture in ED--> moderate WBC and Gram + cocci * Blood cultures pending Chronic: Afib on coumadin * EKG in ED--> Afib, 74-103 bpm * On Warfarin * Monitor on telemetry CHF HTN Glaucoma Plan: Transferred to medical floor today She remains stable and continues to improve clinically Other orders as indicated above Routine AM labs Heart Healthy Diet, 2g Na restriction and 2L fluid restriction PT/OT/RT DVT Prophylaxis: On Warfarin; refuses to take at-home dose--> Pharmacy to dose GI Prophylaxis: Pepcid Ambulated as tolerated Code Status: DNR/DNI; PCP: Dr. Boudreaux
[2018-01-22] MEDS ORDERED: Benzocaine/Cetylpyridinium/Menthol Lozenge MUCMEM PRN (23:46)
[2018-01-23] MEDS ORDERED: Furosemide 40 MG Tab PO SCH (09:00)
[2018-01-23] MEDS: Albuterol/Ipratropium 3.0-0.5 MG/3 ML Neb Soln NEB PRN ×2 (09:13→13:21)
[2018-01-23] MEDS: Diltiazem 240 MG Cap.ER PO SCH (09:26)
[2018-01-23] MEDS: Potassium Chloride 20 MEQ Tab.ER PO SCH (09:26)
[2018-01-23] MEDS: guaiFENesin 600 MG Tab.ER PO SCH ×2 (09:26→21:02)
[2018-01-23] MEDS: Lisinopril 5 MG Tab PO SCH (09:26)
[2018-01-23] MEDS: Famotidine 20 MG Tab PO SCH (09:26)
[2018-01-23] MEDS: Azithromycin 250 MG Tab PO SCH (09:26)
[2018-01-23] MEDS: Metoprolol Succinate 25 MG Tab.ER PO SCH (09:27)
[2018-01-23] MEDS: Furosemide 40 MG/4 ML VIAL IVPUSH SCH (09:27)
[2018-01-23] MEDS: methylPREDNISolone Sodium Succinate 40 MG/1 ML SDV IVPUSH SCH ×2 (09:27→21:02)
[2018-01-23] MEDS ORDERED: Warfarin 2 MG Tab PO SCH ×2 (10:45→18:00)
--- NOTE | 2018-01-23 15:09 | PCM.PN ---
- General Info Date of Service: 01/23/18 Admission Dx/Problem (Free Text): Admission Diagnosis/Problem Admission Diagnosis/Problem COPD, Moderate chronic obstructive pulmonary disease Subjective Update: In to see Rosalie. Overall she is doing well. She is sitting up in bed talking with nursing. She complains of a mild headache and some wheezing, but states she is no longer SOB. Will give pain medication PRN for headache. She is on 2.5L NC. She is working with RT and having breathing treatments. She had an echo done this morning, will give results when formal read comes back. Ambulating. Urinating. No diarrhea/constipation, last normal BM this afternoon. No concerns from nursing. We will continue current treatment regimen until she no longer needs O2. Functional Status: Reports: Pain Controlled, Tolerating Diet, Ambulating, Urinating - Review of Systems General: Reports: No Symptoms. Denies: Fever, Chills HEENT: Reports: No Symptoms Pulmonary: Reports: Cough, Sputum, Wheezing Cardiovascular: Reports: Dyspnea on Exertion. Denies: Chest Pain, Orthopnea Gastrointestinal: Reports: No Symptoms. Denies: Abdominal Pain, Diarrhea, Nausea, Vomiting Genitourinary: Reports: No Symptoms. Denies: Dysuria, Frequency, Burning, Pain , Urgency, Incontinence Musculoskeletal: Reports: No Symptoms Skin: Reports: No Symptoms Neurological: Reports: No Symptoms Psychiatric: Reports: No Symptoms - Patient Data Vitals - Most Recent: Last Vital Signs Temp 98.2 F 01/23/18 11:47 Pulse 128 H 01/23/18 11:47 Resp 23 H 01/23/18 11:47 BP 115/57 L 01/23/18 11:47 Pulse Ox 89 L 01/23/18 13:21 Weight - Most Recent: 143 lb 4 oz I&O - Last 24 Hours: Intake & Output 01/23/18 01/23/18 01/23/18 06:59 14:59 22:59 Intake Total 400 540 Balance 400 540 Lab Results Last 24 Hours: Laboratory Results - last 24 hr 01/23/18 01/23/18 01/23/18 Range/Units 05:57 05:57 05:57 WBC 8.33 (3.98-10.04) K/mm3 RBC 4.76 (3.98-5.22) M/mm3 Hgb 13.9 (11.2-15.7) gm/L Hct 42.9 (34.1-44.9) % MCV 90.1 (79.4-94.8) fl MCH 29.2 (25.6-32.2) pg MCHC 32.4 (32.2-35.5) g/dl RDW Std Deviation 51.7 H (36.4-46.3) fL Plt Count 228 (182-369) K/mm3 MPV 11.0 (9.4-12.3) fl Neut % (Auto) 88.5 H (34.0-71.1) % Lymph % (Auto) 10.3 L (19.3-51.7) % Lane % (Auto) 1.1 L (4.7-12.5) % Eos % (Auto) 0 L (0.7-5.8) Baso % (Auto) 0.0 L (0.1-1.2) % Neut # (Auto) 7.37 H (1.56-6.13) K/mm3 Lymph # (Auto) 0.86 L (1.18-3.74) K/mm3 Lane # (Auto) 0.09 L (0.24-0.36) K/mm3 Eos # (Auto) 0.00 L (0.04-0.36) K/mm3 Baso # (Auto) 0.00 L (0.01-0.08) K/mm3 Manual Slide Review Abnormal smear PT 27.3 H (9.5-12.1) SECONDS INR 2.55 Sodium (136-145) mEq/L Potassium (3.5-5.1) mEq/L Chloride (98-107) mEq/L Carbon Dioxide (21-32) mEq/L Anion Gap (5-15) BUN (7-18) mg/dL Creatinine (0.55-1.02) mg/dL Est Cr Clr Drug Dosing mL/min Estimated GFR (MDRD) (>60) mL/min BUN/Creatinine Ratio (14-18) Glucose (83-115) mg/dL Calcium (8.5-10.1) mg/dL Magnesium (1.8-2.4) mg/dl C-Reactive Protein (<1.0) mg/dL NT-Pro-B Natriuret Pep 4316 H (0-450) pg/mL 01/23/18 Range/Units 05:57 WBC (3.98-10.04) K/mm3 RBC (3.98-5.22) M/mm3 Hgb (11.2-15.7) gm/L Hct (34.1-44.9) % MCV (79.4-94.8) fl MCH (25.6-32.2) pg MCHC (32.2-35.5) g/dl RDW Std Deviation (36.4-46.3) fL Plt Count (182-369) K/mm3 MPV (9.4-12.3) fl Neut % (Auto) (34.0-71.1) % Lymph % (Auto) (19.3-51.7) % Lane % (Auto) (4.7-12.5) % Eos % (Auto) (0.7-5.8) Baso % (Auto) (0.1-1.2) % Neut # (Auto) (1.56-6.13) K/mm3 Lymph # (Auto) (1.18-3.74) K/mm3 Lane # (Auto) (0.24-0.36) K/mm3 Eos # (Auto) (0.04-0.36) K/mm3 Baso # (Auto) (0.01-0.08) K/mm3 Manual Slide Review PT (9.5-12.1) SECONDS INR Sodium 139 (136-145) mEq/L Potassium 4.5 (3.5-5.1) mEq/L Chloride 100 (98-107) mEq/L Carbon Dioxide 34 H (21-32) mEq/L Anion Gap 9.5 (5-15) BUN 42 H (7-18) mg/dL Creatinine 1.3 H (0.55-1.02) mg/dL Est Cr Clr Drug Dosing 27.46 mL/min Estimated GFR (MDRD) 39 (>60) mL/min BUN/Creatinine Ratio 32.3 H (14-18) Glucose 139 H (83-115) mg/dL Calcium 8.9 (8.5-10.1) mg/dL Magnesium 1.9 (1.8-2.4) mg/dl C-Reactive Protein 4.1 H* (<1.0) mg/dL NT-Pro-B Natriuret Pep (0-450) pg/mL Idris Results Last 24 Hours: Microbiology 01/22/18 11:50 Aerobic Blood Culture - Preliminary Blood - Venous - Lab Draw NO GROWTH AFTER 1 DAY Anaerobic Blood Culture - Preliminary NO GROWTH AFTER 1 DAY 01/22/18 11:45 Aerobic Blood Culture - Preliminary Blood - Venous NO GROWTH AFTER 1 DAY Anaerobic Blood Culture - Preliminary NO GROWTH AFTER 1 DAY 01/22/18 14:20 Gram Stain - Final Sputum - Expectorated Sputum Culture - Preliminary Med Orders - Current: Current Medications Acetaminophen (Tylenol) 650 mg PO Q4H PRN PRN Reason: Pain (Mild 1-3)/fever Albuterol (Proventil Neb Soln) 2.5 mg NEB Q2H PRN PRN Reason: Shortness Of Breath/wheezing Albuterol/Ipratropium (Duoneb 3.0-0.5 Mg/3 Ml) 3 ml NEB Q4H PRN PRN Reason: Shortness Of Breath/wheezing Last Admin: 01/23/18 13:21 Dose: 3 ml Azithromycin (Zithromax) 250 mg PO DAILY [facility] Last Admin: 01/23/18 09:26 Dose: 250 mg Benzocaine/Menthol (Cepacol Sore Throat) 1 lozenge MUCMEM Q2H PRN PRN Reason: Cough Bisacodyl (Dulcolax) 5 mg PO DAILY PRN PRN Reason: Constipation Diltiazem HCl (Dilacor Xr) 240 mg PO DAILY [facility] Last Admin: 01/23/18 09:26 Dose: 240 mg Docusate Sodium (Colace) 100 mg PO BID PRN PRN Reason: Constipation Famotidine (Pepcid) 20 mg PO DAILY [facility] Last Admin: 01/23/18 09:26 Dose: 20 mg Furosemide (Lasix) 40 mg IVPUSH DAILY [facility] Last Admin: 01/23/18 09:27 Dose: 40 mg Guaifenesin (Mucinex) 600 mg PO Q12H [facility] Last Admin: 01/23/18 09:26 Dose: 600 mg Hydromorphone HCl (Dilaudid) 0.25 mg IVPUSH Q2H PRN PRN Reason: Pain (severe 7-10) Latanoprost (Xalatan 0.005% Ophth Soln) 0 ml EYEBOTH BEDTIME [facility] Last Admin: 01/22/18 20:04 Dose: 1 drop Lisinopril (Prinivil) 5 mg PO DAILY [facility] Last Admin: 01/23/18 09:26 Dose: 5 mg Magnesium Hydroxide (Milk Of Magnesia) 30 ml PO Q12H PRN PRN Reason: Constipation Methylprednisolone Sodium Succinate (Solu-Medrol) 40 mg IVPUSH Q12H [facility] Stop: 01/24/18 21:00 Last Admin: 01/23/18 09:27 Dose: 40 mg Metoprolol Succinate (Toprol Xl) 25 mg PO DAILY [facility] Last Admin: 01/23/18 09:27 Dose: 25 mg Ondansetron HCl (Zofran Odt) 4 mg PO Q4H PRN PRN Reason: nausea, able to take PO Ondansetron HCl (Zofran) 4 mg IV Q4H PRN PRN Reason: Nausea/Vomiting Oxycodone/Acetaminophen (Percocet 325-5 Mg) 1 tab PO Q4H PRN PRN Reason: Pain (moderate 4-6) Polyethylene Glycol (Miralax) 17 gm PO DAILY PRN PRN Reason: Constipation Potassium Chloride (Klor-Con M20) 20 meq PO DAILY [facility] Last Admin: 01/23/18 09:26 Dose: 20 meq Prednisone (Prednisone) 20 mg PO DAILY [facility] Senna/Docusate Sodium (Senna Plus) 1 tab PO BID PRN PRN Reason: Constipation Sodium Chloride (Saline Flush) 10 ml FLUSH ASDIRECTED PRN PRN Reason: Keep Vein Open Last Admin: 01/22/18 12:17 Dose: 10 ml Temazepam (Restoril) 7.5 mg PO BEDTIME PRN PRN Reason: Sleep Warfarin Sodium (Pharmacy To Dose - Warfarin) 0 dose .XX ASDIRECTED PRN PRN Reason: RX TO DOSE WARFARIN Warfarin Sodium (Coumadin) 2 mg PO DAILY@1800 [facility] Stop: 01/23/18 21:00 Discontinued Medications Albuterol (Proventil Neb Soln) 2.5 mg NEB ONETIME ONE Stop: 01/22/18 13:13 Last Admin: 01/22/18 13:30 Dose: 2.5 mg Albuterol/Ipratropium (Duoneb 3.0-0.5 Mg/3 Ml) 3 ml NEB ONETIME ONE Stop: 01/22/18 11:38 Last Admin: 01/22/18 11:48 Dose: 3 ml Furosemide (Lasix) 40 mg IVPUSH NOW ONE Stop: 01/22/18 12:59 Last Admin: 01/22/18 13:17 Dose: 40 mg Furosemide (Lasix) 40 mg PO DAILY [facility] Ceftriaxone Sodium 2 gm/ (Sodium Chloride) 100 mls @ 100 mls/hr IV ONETIME ONE Stop: 01/22/18 12:27 Last Admin: 01/22/18 12:17 Dose: 100 mls/hr Methylprednisolone Sodium Succinate (Solu-Medrol) 40 mg IVPUSH ONETIME ONE Stop: 01/22/18 13:18 Last Admin: 01/22/18 13:41 Dose: 40 mg Warfarin Sodium (Pharmacy To Dose - Warfarin) 1 dose .XX ASDIRECTED [facility] Warfarin Sodium (Coumadin) 2 mg PO DAILY@1800 [facility] Last Admin: 01/22/18 19:51 Dose: Not Given Warfarin Sodium (Coumadin) 2 mg PO ONETIME ONE Stop: 01/22/18 19:46 Last Admin: 01/22/18 20:01 Dose: 2 mg Warfarin Sodium (Coumadin) 2 mg PO SUMOWEFRSA [facility] Warfarin Sodium (Coumadin) 3 mg PO TUTH [facility] - Exam Quality Assessment: Supplemental Oxygen (2.5L NC) General: Alert, Oriented, Cooperative, No Acute Distress HEENT: Pupils Equal, Pupils Reactive, EOMI, Mucous Membr. Moist/[place] Neck: Supple Lungs: Normal Respiratory Effort, Wheezing (throughout lung phillips) Cardiovascular: Irregular Rhythm. No: Regular Rate (irregular) GI/Abdominal Exam: Normal Bowel Sounds, Soft, Non-Tender, No Organomegaly, No Distention, No Abnormal Bruit, No Mass, Pelvis Stable (Female) Exam: Deferred Back Exam: Normal Inspection, Full Range of Motion Extremities: Normal Inspection, Normal Range of Motion, Non-Tender, No Pedal Edema, Normal Capillary Refill Peripheral Pulses: 2+: Posterior Tibial (L), Posterior Tibial (R), Dorsalis Pedis (L), Dorsalis Pedis (R) Skin: Warm, Dry, Intact Neurological: No New Focal Deficit Psy/Mental Status: Alert, Normal Affect, Normal Mood - Problem List & Annotations (1) COLD, Chronic obstructive lung disease SNOMED Code(s): 12863190 Code(s): J44.9 - CHRONIC OBSTRUCTIVE PULMONARY DISEASE, UNSPECIFIED Status : Chronic Priority: High Current Visit: Yes (2) Heart failure SNOMED Code(s): 06099967 Code(s): I50.9 - HEART FAILURE, UNSPECIFIED Status: Chronic Priority: High Current Visit: Yes Qualifiers: Heart failure type: unspecified Heart failure chronicity: unspecified Qualified Code(s): I50.9 - Heart failure, unspecified (3) Hypoxemia SNOMED Code(s): 227632456 Code(s): R09.02 - HYPOXEMIA Status: Acute Priority: High Current Visit : Yes - Problem List Review Problem List Initiated/Reviewed/Updated: Yes - My Orders Last 24 Hours: My Active Orders 01/22/18 17:40 May Shower [RC] ASDIRECTED Up With Assistance [RC] BID Up to Chair [RC] BID VTE/DVT Education [RC] DAILY Vital Signs [RC] Q4H 01/22/18 18:25 Height and Weight [RC] 04 01/22/18 18:29 Intake and Output [RC] 04,16 Pulse Oximetry [RC] PRN 01/22/18 18:36 Consult to Case Management [CONS] Routine Consult to [employer] [CONS] Routine Respiratory Care Assess and Treatment [CONS] Routine Acetaminophen [Tylenol] 650 mg PO Q4H PRN Acetaminophen/oxyCODONE [Percocet 325-5 MG] 1 tab PO Q4H PRN Albuterol [Proventil Neb Soln] 2.5 mg NEB Q2H PRN Albuterol/Ipratropium [DuoNeb 3.0-0.5 MG/3 ML] 3 ml NEB Q4H PRN Bisacodyl [Dulcolax] 5 mg PO DAILY PRN Docusate Sodium [Colace] 100 mg PO BID PRN Docusate Sodium/Sennosides [Senna Plus] 1 tab PO BID PRN HYDROmorphone [Dilaudid] 0.25 mg IVPUSH Q2H PRN Magnesium Hydroxide [Milk of Magnesia] 30 ml PO Q12H PRN Ondansetron [Zofran ODT] 4 mg PO Q4H PRN Ondansetron [Zofran] 4 mg IV Q4H PRN Polyethylene Glycol 3350 [MiraLAX] 17 gm PO DAILY PRN Temazepam [Restoril] 7.5 mg PO BEDTIME PRN 01/22/18 18:42 RT Aerosol Therapy [RC] ASDIRECTED 01/22/18 18:57 Oxygen Therapy [RC] PRN 01/22/18 19:30 Warfarin Pharmacy to Dose [Pharmacy to Dose - Warfarin] 0 dose .XX ASDIRECTED PRN 01/22/18 20:00 guaiFENesin [Mucinex] 600 mg PO Q12H 01/22/18 21:00 Latanoprost [Xalatan 0.005% Ophth Soln] 0 ml EYEBOTH BEDTIME methylPREDNISolone Sod Succ [Solu-MEDROL] 40 mg IVPUSH Q12H 01/22/18 23:46 Benzocaine/Cetylpyrd/Menthol [Cepacol Sore Throat] 1 lozenge MUCMEM Q2H PRN 01/22/18 Dinner 2 Gram Sodium Diet [DIET] Fluid Restriction [DIET] Heart Healthy Diet [DIET] 01/23/18 09:00 Azithromycin [Zithromax] 250 mg PO DAILY Diltiazem [Dilacor XR] 240 mg PO DAILY Famotidine [Pepcid] 20 mg PO DAILY Furosemide [Lasix] 40 mg IVPUSH DAILY Lisinopril [Prinivil] 5 mg PO DAILY Metoprolol Succinate [Toprol XL] 25 mg PO DAILY Potassium Chloride [Klor-Con M20] 20 meq PO DAILY 01/24/18 05:11 Chest 1V Frontal [CR] AM BASIC METABOLIC PANEL,BMP [CHEM] AM C-REACTIVE PROTEIN [CHEM] AM CBC WITH AUTO DIFF [HEME] AM INR,PT,PROTHROMBIN TIME [COAG] AM MAGNESIUM [CHEM] AM PRO B-TYPE NATRIUR PEPT,BNPPRO [CHEM] DAILY 01/25/18 05:11 BASIC METABOLIC PANEL,BMP [CHEM] AM C-REACTIVE PROTEIN [CHEM] AM CBC WITH AUTO DIFF [HEME] AM INR,PT,PROTHROMBIN TIME [COAG] AM MAGNESIUM [CHEM] AM PRO B-TYPE NATRIUR PEPT,BNPPRO [CHEM] DAILY 01/25/18 09:00 predniSONE 20 mg PO DAILY 01/26/18 05:11 BASIC METABOLIC PANEL,BMP [CHEM] AM C-REACTIVE PROTEIN [CHEM] AM CBC WITH AUTO DIFF [HEME] AM INR,PT,PROTHROMBIN TIME [COAG] AM MAGNESIUM [CHEM] AM PRO B-TYPE NATRIUR PEPT,BNPPRO [CHEM] DAILY 01/27/18 05:11 BASIC METABOLIC PANEL,BMP [CHEM] AM C-REACTIVE PROTEIN [CHEM] AM CBC WITH AUTO DIFF [HEME] AM INR,PT,PROTHROMBIN TIME [COAG] AM MAGNESIUM [CHEM] AM PRO B-TYPE NATRIUR PEPT,BNPPRO [CHEM] DAILY - Plan Plan:: I/P: Acute: CHF exacerbation; unknown EF * BNP elevated at 4181--> 4316 * SOB, no pedal or sacral edema * ECHO--> pending formal read * Lasix 40mg IV Q daily * 2g Na restriction and 2L fluid restrict COPD exacerbation * CXR from [place] shows COPD per [facility] * CRP elevated 4.5--> 4.1 * Repeat CXR in 2 days * RT/Duonebs/Albuterol PRN * Solumedrol 40mg given in ED--> Continue daily x 2 days, then start Prednisone PO 20mg * Azithro 250 Q Daily as anti-inflammatory Hypoxia * 2/2 Above * 61% RA at home and "blue lips" per pt * 88% on 2L NC (upper 70's with exertion per ER report)--> 2.5L NC today * Continue O2 as needed Upper Respiratory Infection, improving * Per family, has had x 2 weeks and is getting better * Afebrile, No leukocytosis * C/O Sinus congestion, had post-nasal drip, productive cough, headache * R/O PNA: * CXR shows no infiltrates * Mycoplasma negative * Sputum culture in ED--> moderate WBC and Gram + cocci * Blood cultures--> no growth after 1 day Chronic: Afib on coumadin * EKG in ED--> Afib, 74-103 bpm * On Warfarin * Monitor on telemetry CHF HTN Glaucoma Plan: Transferred to medical floor today She remains stable and continues to improve clinically Other orders as indicated above Routine AM labs Heart Healthy Diet, 2g Na restriction and 2L fluid restriction PT/OT/RT DVT Prophylaxis: On Warfarin; refuses to take at-home dose--> Pharmacy to dose GI Prophylaxis: Pepcid Ambulated as tolerated Code Status: DNR/DNI; PCP: Dr. Boudreaux
[2018-01-23] MEDS: Latanoprost 0.005% Ophth Soln 2.5 ML Bottle EYEBOTH SCH (21:02)
[2018-01-24] MEDS: methylPREDNISolone Sodium Succinate 40 MG/1 ML SDV IVPUSH SCH (08:58)
[2018-01-24] MEDS: Furosemide 40 MG/4 ML VIAL IVPUSH SCH (08:58)
[2018-01-24] MEDS: Diltiazem 240 MG Cap.ER PO SCH (09:01)
[2018-01-24] MEDS: Metoprolol Succinate 25 MG Tab.ER PO SCH (09:01)
[2018-01-24] MEDS: Azithromycin 250 MG Tab PO SCH (09:01)
[2018-01-24] MEDS: guaiFENesin 600 MG Tab.ER PO SCH (09:02)
[2018-01-24] MEDS: Potassium Chloride 20 MEQ Tab.ER PO SCH (09:02)
[2018-01-24] MEDS: Famotidine 20 MG Tab PO SCH (09:02)
[2018-01-24] MEDS: Lisinopril 5 MG Tab PO SCH (09:02)
[2018-01-24] MEDS ORDERED: Acetaminophen/Butalbital/Caffeine 325-50-40 MG Tab PO ONE (10:30)
[2018-01-24] MEDS ORDERED: Warfarin 2 MG Tab PO SCH (10:45)
--- NOTE | 2018-01-24 11:17 | CR ---
Chest: Portable view of the chest was obtained. Comparison: Prior chest x-ray of 01/22/18. Heart is enlarged. Pulmonary vessels shows mild chronic congestion. Lungs otherwise are clear. Bony structures are grossly intact. Impression: 1. Cardiomegaly with mild chronic appearing pulmonary vascular congestion. Diagnostic code #3
--- NOTE | 2018-01-24 11:20 | PCM.DCSUM1 ---
Discharge Summary - Hospital Course HPI Initial Comments: This is an 87 yo female with past medical h/o Afib on coumadin, CHF, HTN, Glaucoma who comes in for CHF and COPD exacerbation with hypoxia. No current pain. She complains of wheezing, SOB on exertion, productive cough, sinus congestion, headache. She denies any F/C, decreased appetite, nausea, vomiting, diarrhea, chest pain, or GI/ complaints. Her symptoms improved after receiving O2, Duonebs, Albuterol, Lasix, Rocephin and Solu-medrol in the ED. Her initial workup in the ED showed a CBC remarkable for RDW 51.7, Neut 68%. Her coagulation study shows PT 26.5, INR 2.47. Her chemistry is remarkable for Na 134, Cl 97, BUN 41, Cr 1.5, eGFR 33, Alk Phos 129 , CRP 4.5, BNP 4181. EKG shows Afib. Chest X-ray from [place] shows COPD per [facility]. U/A unimpressive for UTI. Mycoplasma negative. Lactic acid normal at 0.8. Sputum culture shows moderate WBC and Gram + cocci. Blood cultures pending. She is subsequently admitted to the medical floor. She is DNR/DNI. Her PCP is Dr. Boudreaux/Marga Duncan PA-C. Diagnosis: Stroke: No - Discharge Data Discharge Date: 01/24/18 (Admit date: 01/22/18) Discharge Disposition: Home, Self-Care 01 Condition: Undetermined - Discharge Diagnosis/Problem(s) (1) Hypoxemia SNOMED Code(s): 527847639 ICD Code: R09.02 - HYPOXEMIA Status: Acute Priority: High Current Visit : Yes (2) COLD, Chronic obstructive lung disease SNOMED Code(s): 61440616 ICD Code: J44.9 - CHRONIC OBSTRUCTIVE PULMONARY DISEASE, UNSPECIFIED Status : Chronic Priority: High Current Visit: Yes (3) Heart failure SNOMED Code(s): 27968821 ICD Code: I50.9 - HEART FAILURE, UNSPECIFIED Status: Chronic Priority: High Current Visit: Yes Qualifiers: Heart failure type: unspecified Heart failure chronicity: unspecified Qualified Code(s): I50.9 - Heart failure, unspecified - Patient Summary/Data Consults: Consultations 01/22/18 18:36 Consult to Case Management [CONS] Routine Consult to Social Insurance Adviser [CONS] Routine Respiratory Care Assess and Treatment [CONS] Routine Labs Pending at D/C: None Recommended Follow-up Testing/Procedures: Follow-up with PCP within 7-10 days of discharge. Hospital Course: I/P: Acute: CHF exacerbation; unknown EF * BNP elevated at 4181--> 4316-->3045 * SOB, no pedal or sacral edema * ECHO obtained on 01/23/18: 1. LVEF, by visual estimation is 55-60% 2. Severely dilated left atrium 3. Severely dilated right atrium 4. Moderate aortic valve stenosis 5. The mean AV gradient is 29 mm Hg 6. Mild to moderate aortic valve regurgitation 7. Mild to moderate mitral valve regurgitation 8. Moderate tricuspid valve regurgitation 9. The right ventricular systolic pressure is mild to moderately elevated at 44.0 mmHg 10. Mild dilation of the aortic root * Lasix 40mg IV Q daily -> resume home dose * 2g Na restriction and 2L fluid restriction COPD exacerbation * CXR from [place] shows COPD per [facility] * CRP elevated 4.5--> 4.1-->2.9 * Repeat CXR: Cardiomegaly with chronic mild pulmonary vascular congestion * RT/Duonebs/Albuterol PRN * Solumedrol 40mg given in ED--> Continue daily x 2 days, then start Prednisone PO 20mg * Azithro 250 Q Daily as anti-inflammatory -> stop Hypoxia, resolved * 2/2 Above * 61% RA at home and "blue lips" per pt * 88% on 2L NC (upper 70's with exertion per ER report)--> 2.5L NC today * Continue O2 as needed Upper Respiratory Infection, improving * Per family, has had x 2 weeks and is getting better * Afebrile, No leukocytosis * C/O Sinus congestion, had post-nasal drip, productive cough, headache * R/O PNA: * CXR shows no infiltrates * Mycoplasma negative * Sputum culture in ED--> moderate WBC and Gram + cocci * Blood cultures--> no growth after 2 day Chronic: Afib on coumadin * EKG in ED--> Afib, 74-103 bpm * On Warfarin * Monitor on telemetry CHF HTN Glaucoma Plan: Transferred to medical floor today She remains stable and continues to improve clinically Other orders as indicated above Routine AM labs Heart Healthy Diet, 2g Na restriction and 2L fluid restriction PT/OT/RT DVT Prophylaxis: On Warfarin; refuses to take at-home dose--> Pharmacy to dose GI Prophylaxis: Pepcid Ambulated as tolerated Code Status: DNR/DNI; PCP: Marga Duncan PA-C/Dr. Boudreaux Overall Rosalie did very well. Her Repeat CXR showed cardiomegaly and mild chronic pulmonary congestion. She refused all home health services. Labs showed no signs of infection. Her WBC did elevate today, however she was receiving steroids. She feels much better today. Her INR was slightly elevated today at 3.34. Patient was advised to hold her warfarin today and resume tomorrow. She was given azithromycin and steroids, which were stepped down to prednisone 20mg. She will be discharged home on 3 more prednisone tablets. She was evaluated for oxygen and should wear 2L via NC at all times, 4L with activity. She has reportedly had oxygen in the past and feels comfortable with this. Her home meds were resumed. Echo was obtained as above. She was told to limit her sodium to 2 grams. We discussed using salt substitute. She did see our wire spinner. She will be discharged home today. She was instructed to follow-up with her PCP within 7-10 days, sooner if needed. - Patient Instructions Diet: Low Sodium Activity: As Tolerated Driving: Do Not Drive (today ) Showering/Bathing: May Shower Notify Provider of: Fever, Increased Pain, Nausea and/or Vomiting Other/Special Instructions: -Hold your dose of warfarin today. Restart tomorrow. -Follow-up with your primary care provider within the next 7-10 days. -Take all medications as prescribed. -Wear your oxygen as directed - 2L all the time and 4L with activity. -If symptoms worsen contact your primary care provider, call an ambulance, or return to the Emergency room. - Discharge Plan *PRESCRIPTION DRUG MONITORING PROGRAM REVIEWED*: No *COPY OF PRESCRIPTION DRUG MONITORING REPORT IN PATIENT WHIT: No Prescriptions/Med Rec: predniSONE 20 mg PO DAILY #3 tablet Home Medications: Home Meds Albuterol [Proair HFA] 2 puff INH ASDIRECTED 10/23/13 [History] Diltiazem HCl [Diltiazem 24Hr ER] 240 mg PO DAILY 10/23/13 [History] Furosemide [Lasix] 40 mg PO DAILY 10/23/13 [History] Latanoprost [Xalatan 0.005% Ophth Soln] 1 drop EYEBOTH BEDTIME 10/23/13 [History ] Lisinopril [Prinivil] 5 mg PO DAILY 10/23/13 [History] Potassium Chloride 20 meq PO DAILY 10/23/13 [History] Probiotic Otc 1 tab PO BID 10/23/13 [History] guaiFENesin [Mucinex] 600 mg PO Q12H 10/23/13 [History] Ferrous Fumarate/Vitamin C [Vitron-C] 1 tab PO DAILY 01/22/18 [History] Metoprolol Succinate 25 mg PO DAILY 01/22/18 [History] Warfarin [Coumadin] 2 mg PO SUMOWEFRSA 01/23/18 [History] Warfarin [Coumadin] 3 mg PO TUTH 01/23/18 [History] predniSONE 20 mg PO DAILY #3 tablet 01/24/18 [Rx] Patient Handouts: Low-Sodium Eating Plan, Heart Failure, [id number], Cooking With Less Salt Forms: ED Department Discharge Referrals: Russ Boudreaux MD [Primary Care Provider] - Kerri Duncan PA-C [Physician Environmental Conservation Officer] - - Discharge Summary/Plan Comment DC Time >30 min.: Yes (45 mins ) - General Info Date of Service: 01/24/18 Admission Dx/Problem (Free Text: Admission Diagnosis/Problem Admission Diagnosis/Problem COPD, Moderate chronic obstructive pulmonary disease Subjective Update: In to see Rosalie. She wants to be discharged and says she feels much better. She is still on oxygen. RT saw her and qualified her for home O2. She has no complaints. WBC is elevated but this is likely due to steroid use. Her INR is high today and she will hold her warfarin today. Otherwise labs look good. No nursing concerns. She will be discharged today. Functional Status: Reports: Pain Controlled, Tolerating Diet, Ambulating, Urinating. Denies: New Symptoms - Review of Systems General: Reports: No Symptoms. Denies: Fever, Weakness, Fatigue, Malaise HEENT: Reports: No Symptoms. Denies: Sore Throat Pulmonary: Reports: Shortness of Breath (At baseline currently ). Denies: Cough , Sputum Cardiovascular: Reports: Dyspnea on Exertion (at baseline ). Denies: Chest Pain , Palpitations, Lightheadedness Gastrointestinal: Reports: No Symptoms. Denies: Abdominal Pain, Constipation, Diarrhea, Nausea, Vomiting Genitourinary: Reports: No Symptoms Musculoskeletal: Reports: No Symptoms Skin: Reports: No Symptoms Neurological: Reports: No Symptoms. Denies: Confusion Psychiatric: Reports: No Symptoms - Patient Data Vitals - Most Recent: Last Vital Signs Temp 98.1 F 01/24/18 08:19 Pulse 89 01/24/18 09:01 Resp 22 H 01/24/18 08:19 BP 109/60 01/24/18 09:02 Pulse Ox 90 L 01/24/18 10:30 Weight - Most Recent: 144 lb 1.6 oz I&O - Last 24 hours: Intake & Output 01/23/18 01/24/18 01/24/18 22:59 06:59 14:59 Intake Total 640 300 400 Output Total 300 Balance 340 300 400 Lab Results - Last 24 hrs: Laboratory Results - last 24 hr 01/24/18 01/24/18 01/24/18 Range/Units 05:16 05:16 05:16 WBC 14.87 H (3.98-10.04) K/mm3 RBC 4.45 (3.98-5.22) M/mm3 Hgb 13.1 (11.2-15.7) gm/L Hct 40.3 (34.1-44.9) % MCV 90.6 (79.4-94.8) fl MCH 29.4 (25.6-32.2) pg MCHC 32.5 (32.2-35.5) g/dl RDW Std Deviation 52.1 H (36.4-46.3) fL Plt Count 245 (182-369) K/mm3 MPV 10.9 (9.4-12.3) fl Neut % (Auto) 92.5 H (34.0-71.1) % Lymph % (Auto) 5.6 L (19.3-51.7) % [place] % (Auto) 1.7 L (4.7-12.5) % Eos % (Auto) 0 L (0.7-5.8) Baso % (Auto) 0.1 (0.1-1.2) % Neut # (Auto) 13.75 H (1.56-6.13) K/mm3 Lymph # (Auto) 0.84 L (1.18-3.74) K/mm3 [place] # (Auto) 0.25 (0.24-0.36) K/mm3 Eos # (Auto) 0.00 L (0.04-0.36) K/mm3 Baso # (Auto) 0.01 (0.01-0.08) K/mm3 Manual Slide Review Abnormal smear PT 35.6 H (9.5-12.1) SECONDS INR 3.34 Sodium (136-145) mEq/L Potassium (3.5-5.1) mEq/L Chloride (98-107) mEq/L Carbon Dioxide (21-32) mEq/L Anion Gap (5-15) BUN (7-18) mg/dL Creatinine (0.55-1.02) mg/dL Est Cr Clr Drug Dosing mL/min Estimated GFR (MDRD) (>60) mL/min BUN/Creatinine Ratio (14-18) Glucose (83-115) mg/dL Calcium (8.5-10.1) mg/dL Magnesium (1.8-2.4) mg/dl C-Reactive Protein (<1.0) mg/dL NT-Pro-B Natriuret Pep 3045 H (0-450) pg/mL 01/24/18 Range/Units 05:16 WBC (3.98-10.04) K/mm3 RBC (3.98-5.22) M/mm3 Hgb (11.2-15.7) gm/L Hct (34.1-44.9) % MCV (79.4-94.8) fl MCH (25.6-32.2) pg MCHC (32.2-35.5) g/dl RDW Std Deviation (36.4-46.3) fL Plt Count (182-369) K/mm3 MPV (9.4-12.3) fl Neut % (Auto) (34.0-71.1) % Lymph % (Auto) (19.3-51.7) % [place] % (Auto) (4.7-12.5) % Eos % (Auto) (0.7-5.8) Baso % (Auto) (0.1-1.2) % Neut # (Auto) (1.56-6.13) K/mm3 Lymph # (Auto) (1.18-3.74) K/mm3 [place] # (Auto) (0.24-0.36) K/mm3 Eos # (Auto) (0.04-0.36) K/mm3 Baso # (Auto) (0.01-0.08) K/mm3 Manual Slide Review PT (9.5-12.1) SECONDS INR Sodium 138 (136-145) mEq/L Potassium 4.7 (3.5-5.1) mEq/L Chloride 100 (98-107) mEq/L Carbon Dioxide 33 H (21-32) mEq/L Anion Gap 9.7 (5-15) BUN 51 H (7-18) mg/dL Creatinine 1.4 H (0.55-1.02) mg/dL Est Cr Clr Drug Dosing 25.50 mL/min Estimated GFR (MDRD) 35 (>60) mL/min BUN/Creatinine Ratio 36.4 H (14-18) Glucose 146 H (83-115) mg/dL Calcium 8.9 (8.5-10.1) mg/dL Magnesium 2.0 (1.8-2.4) mg/dl C-Reactive Protein 2.9 H* (<1.0) mg/dL NT-Pro-B Natriuret Pep (0-450) pg/mL MARY ALICE Results - Last 24 hrs: Microbiology 01/22/18 11:50 Aerobic Blood Culture - Preliminary Blood - Venous - Lab Draw NO GROWTH AFTER 1 DAY Anaerobic Blood Culture - Preliminary NO GROWTH AFTER 1 DAY 01/22/18 11:45 Aerobic Blood Culture - Preliminary Blood - Venous NO GROWTH AFTER 1 DAY Anaerobic Blood Culture - Preliminary NO GROWTH AFTER 1 DAY 01/22/18 14:20 Gram Stain - Final Sputum - Expectorated Sputum Culture - Preliminary Med Orders - Current: Current Medications Acetaminophen (Tylenol) 650 mg PO Q4H PRN PRN Reason: Pain (Mild 1-3)/fever Last Admin: 01/24/18 09:13 Dose: 650 mg Albuterol (Proventil Neb Soln) 2.5 mg NEB Q2H PRN PRN Reason: Shortness Of Breath/wheezing Albuterol/Ipratropium (Duoneb 3.0-0.5 Mg/3 Ml) 3 ml NEB Q4H PRN PRN Reason: Shortness Of Breath/wheezing Last Admin: 01/23/18 13:21 Dose: 3 ml Azithromycin (Zithromax) 250 mg PO DAILY [facility] Last Admin: 01/24/18 09:01 Dose: 250 mg Benzocaine/Menthol (Cepacol Sore Throat) 1 lozenge MUCMEM Q2H PRN PRN Reason: Cough Bisacodyl (Dulcolax) 5 mg PO DAILY PRN PRN Reason: Constipation Diltiazem HCl (Dilacor Xr) 240 mg PO DAILY [facility] Last Admin: 01/24/18 09:01 Dose: 240 mg Docusate Sodium (Colace) 100 mg PO BID PRN PRN Reason: Constipation Famotidine (Pepcid) 20 mg PO DAILY [facility] Last Admin: 01/24/18 09:02 Dose: 20 mg Furosemide (Lasix) 40 mg IVPUSH DAILY [facility] Last Admin: 01/24/18 08:58 Dose: 40 mg Guaifenesin (Mucinex) 600 mg PO Q12H [facility] Last Admin: 01/24/18 09:02 Dose: 600 mg Hydromorphone HCl (Dilaudid) 0.25 mg IVPUSH Q2H PRN PRN Reason: Pain (severe 7-10) Latanoprost (Xalatan 0.005% Ophth Soln) 0 ml EYEBOTH BEDTIME [facility] Last Admin: 01/23/18 21:02 Dose: 1 drop Lisinopril (Prinivil) 5 mg PO DAILY [facility] Last Admin: 01/24/18 09:02 Dose: 5 mg Magnesium Hydroxide (Milk Of Magnesia) 30 ml PO Q12H PRN PRN Reason: Constipation Methylprednisolone Sodium Succinate (Solu-Medrol) 40 mg IVPUSH Q12H [facility] Stop: 01/24/18 21:00 Last Admin: 01/24/18 08:58 Dose: 40 mg Metoprolol Succinate (Toprol Xl) 25 mg PO DAILY [facility] Last Admin: 01/24/18 09:01 Dose: 25 mg Ondansetron HCl (Zofran Odt) 4 mg PO Q4H PRN PRN Reason: nausea, able to take PO Ondansetron HCl (Zofran) 4 mg IV Q4H PRN PRN Reason: Nausea/Vomiting Oxycodone/Acetaminophen (Percocet 325-5 Mg) 1 tab PO Q4H PRN PRN Reason: Pain (moderate 4-6) Polyethylene Glycol (Miralax) 17 gm PO DAILY PRN PRN Reason: Constipation Potassium Chloride (Klor-Con M20) 20 meq PO DAILY [facility] Last Admin: 01/24/18 09:02 Dose: 20 meq Prednisone (Prednisone) 20 mg PO DAILY [facility] Senna/Docusate Sodium (Senna Plus) 1 tab PO BID PRN PRN Reason: Constipation Sodium Chloride (Saline Flush) 10 ml FLUSH ASDIRECTED PRN PRN Reason: Keep Vein Open Last Admin: 01/22/18 12:17 Dose: 10 ml Temazepam (Restoril) 7.5 mg PO BEDTIME PRN PRN Reason: Sleep Warfarin Sodium (Pharmacy To Dose - Warfarin) 0 dose .XX ASDIRECTED PRN PRN Reason: RX TO DOSE WARFARIN Discontinued Medications Acetaminophen/Butalbital/Caffeine (Fioricet 325-50-40 Mg) 1 tab PO ONETIME ONE Stop: 01/24/18 10:31 Last Admin: 01/24/18 10:30 Dose: 1 tab Albuterol (Proventil Neb Soln) 2.5 mg NEB ONETIME ONE Stop: 01/22/18 13:13 Last Admin: 01/22/18 13:30 Dose: 2.5 mg Albuterol/Ipratropium (Duoneb 3.0-0.5 Mg/3 Ml) 3 ml NEB ONETIME ONE Stop: 01/22/18 11:38 Last Admin: 01/22/18 11:48 Dose: 3 ml Furosemide (Lasix) 40 mg IVPUSH NOW ONE Stop: 01/22/18 12:59 Last Admin: 01/22/18 13:17 Dose: 40 mg Furosemide (Lasix) 40 mg PO DAILY [facility] Ceftriaxone Sodium 2 gm/ (Sodium Chloride) 100 mls @ 100 mls/hr IV ONETIME ONE Stop: 01/22/18 12:27 Last Admin: 01/22/18 12:17 Dose: 100 mls/hr Methylprednisolone Sodium Succinate (Solu-Medrol) 40 mg IVPUSH ONETIME ONE Stop: 01/22/18 13:18 Last Admin: 01/22/18 13:41 Dose: 40 mg Warfarin Sodium (Pharmacy To Dose - Warfarin) 1 dose .XX ASDIRECTED [facility] Warfarin Sodium (Coumadin) 2 mg PO DAILY@1800 [facility] Last Admin: 01/22/18 19:51 Dose: Not Given Warfarin Sodium (Coumadin) 2 mg PO ONETIME ONE Stop: 01/22/18 19:46 Last Admin: 01/22/18 20:01 Dose: 2 mg Warfarin Sodium (Coumadin) 2 mg PO DAILY@1800 [facility] Stop: 01/23/18 21:00 Last Admin: 01/23/18 18:38 Dose: 2 mg Warfarin Sodium (Coumadin) 2 mg PO SUMOWEFR [facility] Last Admin: 01/23/18 17:43 Dose: Not Given Warfarin Sodium (Coumadin) 3 mg PO [facility] - Exam Quality Assessment: Reports: Supplemental Oxygen, DVT Prophylaxis General: Reports: Alert, Oriented, Cooperative, No Acute Distress HEENT: Reports: Pupils Equal, Pupils Reactive, EOMI, Mucous Membr. Moist/[place] Neck: Reports: Supple, +2 Carotid Pulse wo Bruit Lungs: Reports: Normal Respiratory Effort, Decreased Breath Sounds, Wheezing ( very minimal diffuse ) Cardiovascular: Reports: Irregular Rhythm. Denies: Regular Rate GI/Abdominal Exam: Normal Bowel Sounds, Soft, Non-Tender, No Distention (Female) Exam: Deferred Rectal (Female) Exam: Deferred Back Exam: Reports: Normal Inspection, Full Range of Motion Extremities: Normal Inspection, Normal Range of Motion, Non-Tender, No Pedal Edema, Normal Capillary Refill Skin: Reports: Warm, Dry, Intact Neurological: Reports: No New Focal Deficit Psy/Mental Status: Reports: Alert, Normal Affect, Normal Mood
[2018-01-25] MEDS ORDERED: predniSONE 20 MG Tab PO SCH (09:00)
== END 2018-01-24 17:40 | disposition home or self-care (01) | DRG 291 ==
LOC: JD.ED 11:17 → JD.MS 14:14
PROVIDERS: ADMIT Internal Medicine; ATTEND Internal Medicine
DX: J44.9 Chronic obstructive pulmonary disease, unspecified (principal); I11.0 Hypertensive heart disease with heart failure; J96.01 Acute respiratory failure with hypoxia; J44.1 Chronic obstructive pulmonary disease with (acute) exacerbation; I50.9 Heart failure, unspecified; I48.91 Unspecified atrial fibrillation; H40.9 Unspecified glaucoma; R05 Cough; R06.02 Shortness of breath; H35.30 Unspecified macular degeneration; J06.9 Acute upper respiratory infection, unspecified; Z79.01 Long term (current) use of anticoagulants; Z79.899 Other long term (current) drug therapy; Z87.891 Personal history of nicotine dependence; Z66 Do not resuscitate
CPT/HCPCS: 36415; 80053; 83605; 83735; 83880; 84484; 85007; 85027; 85610; 86140; 86738; 87040 ×2; 93005; 94640 ×2; 96365; 96375; 99285; J0696; J1940; J2920; J7030; J7050 ×2; 71045; 71045-26; 80048; 81001; 85025; 87070; 87205; 93010; 93306; 94761; 99284; A9270-GY; J7620-GY